=== PATIENT | female | born 1980 | race American Indian/Alaskan Native ===

== ENCOUNTER 2018-02-18 06:14 | Day surgery (SDC) | payer OTHER ==
[2018-02-12 13:27] LABS: Eosinophils # (Auto) 0.1 K/mm3 (0.0-0.4); Eosinophils % (Auto) 2.8 % (0.0-4.3); Hematocrit 38.1 % (30.3-42.9); Hemoglobin 12.2 gm/dl (10.1-14.3); Lymphocytes # (Auto) 1.8 K/mm3 (1.2-5.4); Lymphocytes % (Auto) 46.9 % (13.4-35.0); Mean Corpuscular HGB Conc 32 % (30-34); Mean Corpuscular Volume 76 fl (79-97); Monocytes # (Auto) 0.3 K/mm3 (0.0-0.8); Monocytes % (Auto) 6.8 % (0.0-7.3); Platelet Count 207 K/mm3 (140-440); Red Blood Count 5.03 M/mm3 (3.65-5.03); Red Cell Distribution Width 14.2 % (13.2-15.2)
[2018-02-12 13:32] LABS: Mean Corpuscular Hemoglobin 24 pg (28-32)
[2018-02-12 13:41] LABS: BUN/Creatinine Ratio 11; Blood Urea Nitrogen 10 mg/dL (7-17); Calcium 8.6 mg/dL (8.4-10.2); Hemolysis Index 42
--- NOTE | 2018-02-12 14:49 | Anesthesia Consultation ---
Anesthesia Consult and Med Hx Date of service: 02/18/18 - Airway Anesthetic Teeth Evaluation: Good ROM Head & Neck: Adequate Mental/Hyoid Distance: Adequate Mallampati Class: Class II Intubation Access Assessment: Probably Good - Pulmonary Exam CTA: Yes - Cardiac Exam Cardiac Exam: RRR - Pre-Operative Health Status ASA Pre-Surgery Classification: ASA1 Proposed Anesthetic Plan: General - Pulmonary Hx Smoking: No Hx Asthma: No COPD: No Hx Sleep Apnea: No (VERITO PRE SCREEN LOW RISK.) - Cardiovascular System Hx Hypertension: No Hx Heart Attack/AMI: No - Central Nervous System Hx Neuromuscular Disorder: No Hx Seizures: No CVA: No Hx Psychiatric Problems: No - Gastrointestinal Hx Gastroesophageal Reflux Disease: No - Endocrine Hx Renal Disease: No Hx Liver Disease: No Hx Insulin Dependent Diabetes: No Hx Non-Insulin Dependent Diabetes: No Hx Thyroid Disease: No - Hematic Hx Anemia: No Hx Sickle Cell Disease: No - Other Systems Hx Alcohol Use: Yes (OCCASIONAL) Hx Substance Use: No Hx Cancer: No - Additional Comments Anesthesia Medical History Comments: No prior anesthetics. No family hx anesthetic complications. CBC, BMP, bHCG drawn today; results pending.
--- NOTE | 2018-02-16 17:30 | History and Physical Report ---
History of Present Illness Date of examination: 02/12/18 Date of admission: 02/18/18 Chief complaint: I want my tubes tied History of present illness: PtVisit Type: Pre-Op CC: pre op. History of Present Illness: pt presents for pre op visit: Laparoscopic Bilateral Salpingectomy.....triston Pt desires permanent sterilization. All risk/benefits/alternatives were d/w pt and questions were addressed and answered. Consents signed and placed on the chart. I d/w felshi clips vs salpingectomy. She desires salpingectomy. Again, all risk, benefits, and alternatives were d/wpt and questions were addressed and answered. Vital Signs: Patient Profile: 37 Years Old Female LMP: 02/03/2018 Height: 64 inches (162.56 cm) Weight: 148 pounds BMI: 25.40 BP sittin / 60 (left arm) Menstrual History: LMP (date): 02/03/2018 LMP - Character: normal Current Method of Contraception: None Date of Last Pap Smear: 04/25/2017 Past History : 3 Term Births: 2 Premature Births: 0 Living Children: 2 Para: 2 Mult. Births: 0 Prev : 0 Aborta: 1 Elect. Ab: 1 Spont. Ab: 0 Ectopics: 0 # 1 Delivery date: 11/21/2001 Weeks Gestation: 39 labor: no Delivery type: Hours of labor: 20 Anesthesia type: epidural Delivery location: [place] Sex: Female weight: 7-1 Name: Stacey # 2 Delivery date: 2009 Delivery type: EAB # 3 Delivery date: 10/02/2012 Weeks Gestation: 39 Delivery type: Anesthesia type: epidural Delivery location: [facility] Infant Sex: male weight: 9 Comments: Failure to progress intoleance to labor PROJECT MANAGEMENT IT SPECIALIST History Uterine Surgery (not C/S): negative Operations: negative Anesthesia Complications: negative Abnormal PAP: negative Uterine Anomaly: negative TAYLOR Exposure: negative Infertility: negative Infection History HIV Risk Eval: no TB exposure: no Personal hx. of genital herpes: no Partner hx. of genital herpes: no Hx of STD: none Other: ct--2002 Current Allergies (reviewed today): No known allergies Past Medical History: Reviewed history from 09/02/2009 and no changes required: Negative Past Medical History Past Surgical History: Reviewed history from 09/08/2014 and no changes required: negative Family History Summary: Reviewed history Last on 04/25/2017 and no changes required:02/16/2018 General Comments - FH: no breast, ovarian or colon cancer No Family History of Breast Cancer No Family History of Colon Cancer No Family History of Ovarian Cancer No Family History of DVT/PE on OCP Family History of Coronary Heart Disease Family History of Diabetes Family History of Hypertension Social History: occ etoh, no illicit drug use, no tobacco use employed Risk Factors: Smoked Tobacco Use: Never smoker Smokeless Tobacco Use: Never Drug use: no HIV high-risk behavior: no Alcohol use: yes Exercise: yes Seatbelt use: 100 % PAP Smear History: Date of Last PAP Smear: 04/25/2017 presents for b/l salpingectomy for sterilization. All risks, benefits and alternatives were d/w pt and questions were addressed and answered. Past History Past Medical History: no pertinent history Past Surgical History: no surgical history PROJECT MANAGEMENT IT SPECIALIST History: chlamydia Medications and Allergies Allergies Allergy/AdvReac Type Severity Reaction Status Date / Time No Known Drug Allergies Allergy Unknown Verified 02/11/18 12:28 Home Medications Medication Instructions Recorded Confirmed Last Taken Type Naproxen [Naprosyn] 375 mg PO BID PRN 02/11/18 02/11/18 Unknown History Active Meds: Active Medications Cefazolin Sodium (Ancef/Sterile Water 2 Gm/20 Ml) 2 gm in 20 mls @ 80 mls/hr IV PREOP NR; Protocol - Vital Signs Vital signs: Vital Signs Temp Pulse Resp BP 98.3 F 74 20 102/60 02/12/18 12:30 02/12/18 12:30 02/12/18 12:30 02/12/18 12:30 Temp Pulse Resp BP Pulse Ox 98.3 F 74 20 102/60 02/12/18 12:30 02/12/18 12:30 02/12/18 12:30 02/12/18 12:30 - Physical Exam Cardiovascular: Normal S1 Lungs: Positive: Clear to auscultation. Negative: Normal air movement Abdomen: Positive: normal appearance, soft. Negative: distention, tenderness, guarding Genitourinary (Female): Positive: other (deferred) Extremities: Positive: normal. Negative: tenderness, edema Results Result Diagrams: 02/12/18 12:30 02/12/18 12:30 All other labs normal. Assessment and Plan - Patient Problems (1) Sterilization Status: Acute Plan to address problem: -prepare for above stated procedure -consents signed and placed on the chart
[~2018-02-18 06:14] MED LIST: ANCEF/STERILE WATER 2 GM/20 ML 2 GM/20 ML SYRINGE IV NR
[2018-02-18] MEDS ORDERED: NACL BACTERIOSTATIC INFILTRATI ONE (07:14)
[2018-02-18] MEDS ORDERED: ZEMURON IV ONE (07:16)
[2018-02-18] MEDS ORDERED: DILAUDID ONE (07:16)
[2018-02-18] MEDS ORDERED: DIPRIVAN 10 MG/ML IV ONE (07:16)
[2018-02-18] MEDS ORDERED: XYLOCAINE MPF 2% ONE (07:16)
[2018-02-18] MEDS ORDERED: DECADRON ONE (07:17)
[2018-02-18] MEDS ORDERED: ZOFRAN ONE (07:17)
[2018-02-18] MEDS ORDERED: DILAUDID IV PRN (07:30)
[2018-02-18] MEDS ORDERED: ZOFRAN IV PRN (07:30)
--- NOTE | 2018-02-18 07:37 | Anesthesia Day of Surgery ---
Anesthesia Day of Surgery - Day of Surgery Patient Examined: Yes Patient H&P Reviewed: Yes Patient is NPO: Yes
[2018-02-18] MEDS ORDERED: MARCAINE 0.5% INFILTRATI ONE ×2 (07:41→09:02)
[2018-02-18] MEDS ORDERED: LACTATED RINGERS 1,000 ML IV SCH ×2 (08:00)
[2018-02-18] MEDS ORDERED: VERSED IV NR (08:00)
[2018-02-18] MEDS ORDERED: ROBINUL ONE ×2 (08:36→09:03)
[2018-02-18] MEDS ORDERED: BLOXIVERZ ONE (08:36)
[2018-02-18] MEDS ORDERED: SUBLIMAZE ONE (09:10)
--- NOTE | 2018-02-18 09:14 | Operative Report ---
Operative Report Operative Report: Date of procedure: 02/18/2018 Pre-operative diagnosis: Desires permanent sterilization Post-operative diagnosis: Same Procedure name(s): Laparoscopic bilateral salpingectomy Surgeon: Dr. Shaw Academic Hospitalist: Certified surgical scrub recruitment and outreach assistant Anesthesia: Gen. endotracheal anesthesia EBL: Minimal Urine output: 200 mL of clear urine out prior to the onset of the procedure via straight catheterization Fluids: 1 L Findings: Adhesion of the uterus to the anterior abdominal wall Grossly normal fallopian tubes and ovaries bilaterally Indications: Patient desired permanent sterilization. All risks benefits and alternatives were discussed with the patient the benefits of salpingectomy versus Filshie clip application was also discussed with the patient. Patient desired bilateral salpingectomy. Consents were signed and placed on the chart. Procedure: Patient was taken to the operating room and which she was placed under general endotracheal anesthesia. Patient was then prepped and draped in sterile fashion and placed in dorsal lithotomy position in Fabiano stirrups. Attention was then turned to the vagina in which a Humi uterine manipulator was placed. Patient underwent straight catheterization. Attention was then turned to the umbilicus and which an infraumbilical incision was made with the scalpel 5mm trocar was placed using direct visualization with the camera. Abdomen was then insufflated with gas. Under direct visualization 2 5 mm trocars were then placed in the lower left abdomen. The left tube was then elevated with the grasper cauterized with the tripolar instrument and ligated. Portions of the left fallopian tube was passed off to pathology. Excellent hemostasis was noted. This was repeated on the right side. After the bilateral salpingectomy was completed all instruments were removed from the abdomen under direct visualization. All gas was also released from the abdomen. The skin was approximated with 4-0 Monocryl in a subcuticular stitch. The patient tolerated procedure well. Sponge, lap, and needle counts were all correct x3 the patient was taken to the recovery room awake and in stable condition.
--- NOTE | 2018-02-18 09:15 | Short Stay Summary ---
Short Stay Documentation Date of service: 02/18/18 - Allergies and Medications Current Medications: Allergies No Known Drug Allergies Allergy (Verified 02/11/18 12:28) Unknown Home Medications Medication Instructions Recorded Confirmed Last Taken Type Naproxen [Naprosyn] 375 mg PO BID PRN 02/11/18 02/18/18 02/08/18 History Ibuprofen 800 mg PO Q6HR #30 tablet 02/18/18 Unknown Rx oxyCODONE /ACETAMINOPHEN [Percocet 1 tab PO Q4HR #30 tab 02/18/18 Unknown Rx 5/325] Active Medications Hydromorphone HCl (Dilaudid) 0.5 mg IV Q10MIN PRN PRN Reason: Pain , Severe (7-10) Stop: 02/18/18 14:00 Cefazolin Sodium (Ancef/Sterile Water 2 Gm/20 Ml) 2 gm in 20 mls @ 80 mls/hr IV PREOP NR; Protocol Stop: 02/18/18 23:00 Lactated Ringer's (Lactated Ringers) 1,000 mls @ 100 mls/hr IV DIRECT SCARLET Last Admin: 02/18/18 07:25 Dose: 100 mls/hr Midazolam HCl (Versed) 2 mg IV PREOP NR Stop: 02/18/18 23:59 Ondansetron HCl (Zofran) 4 mg IV ONCE PRN PRN Reason: Nausea And Vomiting - Brief post op/procedure progress note Date of procedure: 02/18/18 Pre-op diagnosis: desires sterilization Post-op diagnosis: same Procedure: Bilateral laparoscopic salpingectomy Anesthesia: GETA Findings: See operative report Surgeon: BIBI WILKINSON Estimated blood loss: minimal Pathology: list (left and right fallopian tube) Specimen disposition: to lab Condition: stable - Hospital course Hospital course: Patient was amenable above-stated procedure. Patient will recover in the PACU. Once discharge criteria has been met patient would be discharged home. Patient will follow-up provider in 1 week. All prescriptions have been provided for patient on the chart. - Disposition Condition at discharge: Good Disposition: [id number]-01 TO HOME OR SELFCARE - Discharge Diagnoses (1) Sterilization Status: Acute Short Stay Discharge Plan Activity: no restrictions Weight Bearing Status: Full Weight Bearing Wound: open to air, keep clean and dry Special Instructions: other (pelvic rest for 2 weeks) Follow up with: BIBI WILKINSON MD [Staff Physician] - 7 Days Prescriptions: Ibuprofen 800 mg PO Q6HR #30 tablet oxyCODONE /ACETAMINOPHEN [Percocet 5/325] 1 tab PO Q4HR #30 tab
[2018-02-18 11:31] VITALS: BP 99/57
== END 2018-02-18 11:35 | disposition home or self-care (01) ==
LOC: OR 06:14
PROVIDERS: ATTEND Obstetrics & Gynecology
DX: Z30.2 Encounter for sterilization (principal); N83.8 Other noninflammatory disorders of ovary, fallopian tube and broad ligament; G43.909 Migraine, unspecified, not intractable, without status migrainosus; Z79.899 Other long term (current) drug therapy; Z90.49 Acquired absence of other specified parts of digestive tract; Z98.891 History of uterine scar from previous surgery; Z72.89 Other problems related to lifestyle
CPT/HCPCS: 36415; 58661; 80048; 84703; 85025; 88302; J0690; J1100; J1170; J2250; J2405; J2704; J2710; J3010; J7120